=== PATIENT | female | born 1960 | race Caucasian/White ===

== ENCOUNTER 2020-12-29 00:26 | Emergency (ER) | payer MEDICAID, OTHER ==
[~2020-12-29] VITALS: Ht 162.6 cm; Wt 77.1 kg
[2020-12-29] MEDS ORDERED: METOPROLOL PO (02:10)
[2020-12-29] MEDS ORDERED: SPIR25TA6 PO (02:10)
[2020-12-29] MEDS ORDERED: LISI10TA29 PO (02:10)
[2020-12-29] MEDS ORDERED: ASPI-618 PO (02:10)
[2020-12-29] MEDS ORDERED: CLOP75TA33 PO (02:10)
--- NOTE | 2020-12-29 02:13 | NUR ---
Dr. Sanchez at bedside for MSE.
--- NOTE | 2020-12-29 02:37 | NUR ---
Patient discharged to home in stable condition. Written and verbal after care instructions given. Patient verbalizes understanding of instructions. Stressed follow up or return to ER for worsening s/s.
[2020-12-29 02:38] VITALS: BP 117/75
== END 2020-12-29 02:38 | disposition home or self-care (01) ==
LOC: ER 00:28
DX: Z20.822 Contact with and (suspected) exposure to COVID-19 (principal); M21.372 Foot drop, left foot; R20.2 Paresthesia of skin; Z95.5 Presence of coronary angioplasty implant and graft; F17.210 Nicotine dependence, cigarettes, uncomplicated; Z88.8 Allergy status to other drugs, medicaments and biological substances; Z88.6 Allergy status to analgesic agent; Z91.040 Latex allergy status; Z86.74 Personal history of sudden cardiac arrest
CPT/HCPCS: A4663